=== PATIENT | male | born 1995 | race Caucasian/White ===

== ENCOUNTER 2024-08-14 02:17 | Emergency (ER) | payer SELFPAY ==
[~2024-08-14] VITALS: Ht 182.9 cm; Wt 118.0 kg
[2024-08-14 02:41] VITALS: O2SAT 98
[2024-08-14 04:19] LABS: BASOPHILS % 0.5 % (0.0-2.0); EOSINOPHILS % 3.4 % (0.0-5.0); HEMATOCRIT. 44.6 % (42.0-52.0); HEMOGLOBIN. 14.8 g/dL (14.0-18.0); MEAN CORPUSCULAR HEMOGLOBIN 30.4 pg (28.0-32.0); MEAN CORPUSCULAR HGB CONC 33.3 g/dL (31.0-37.0); MEAN CORPUSCULAR VOLUME 91.4 fL (80.0-94.0); MEAN PLATELET VOLUME 9.1 fl (7.4-10.4); MONOCYTES % 5.6 % (2.0-8.0); NEUTROPHILS % 63.5 % (40.0-76.0); PLATELET 216 x1000/uL (130-400); RED BLOOD CELL COUNT 4.88 mill/uL (4.7-6.1); RED CELL DISTRIBUTION WIDTH 12.9 % (11.6-14.6); WHITE BLOOD COUNT 12.7 x1000/uL (4.5-11.0)
[2024-08-14 04:21] LABS: CHLORIDE 110 mEq/L (98-107); POTASSIUM 3.5 mEq/L (3.5-5.1); SODIUM 146 mEq/L (136-145)
[2024-08-14 04:22] LABS: CARBON DIOXIDE 22 mEq/L (21-32)
[2024-08-14 04:27] LABS: CREATININE 1.1 mg/dL (0.6-1.3); GLUCOSE 135 mg/dL (70-105); UREA NITROGEN BLOOD 9 mg/dL (9-23)
[2024-08-14 04:28] LABS: ETHANOL BLOOD 271 mg/dL (<10)
[2024-08-14 04:29] LABS: ALANINE AMINOTRANSFERASE 114 IU/L (10-49); ALBUMIN 4.7 g/dL (3.2-4.8); ASPARTATE AMINOTRANSFERASE 110 IU/L (<34); BILIRUBIN DIRECT 0.2 mg/dL (<=3.0)
[2024-08-14 04:30] LABS: BILIRUBIN TOTAL 0.6 mg/dL (0.1-1.0); PROTEIN TOTAL 7.2 g/dL (6.0-8.3)
[2024-08-14 04:32] LABS: INR 0.9; PROTHROMBIN TIME 10.6 sec (9.6-11.0)
[2024-08-14] MEDS: SODIUM CHLORIDE 0.9% 1,000 ML IV ONE (05:57)
[2024-08-14 07:00] VITALS: BP 117/64; PULSE 68; RESP 12; TEMP 36.83628; O2SAT 98
== END 2024-08-14 09:33 | disposition left against medical advice (07) ==
LOC: ER 02:17
DX: F10.129 Alcohol abuse with intoxication, unspecified (principal); R41.0 Disorientation, unspecified; Y90.8 Blood alcohol level of 240 mg/100 ml or more
CPT/HCPCS: 80076; 80048; 80320; 85025; 85610; 36415; 71045; 70450; 72125; 71250; 99284; J7030; G0480

== ENCOUNTER 2024-12-03 18:21 | Emergency (ER) | payer MEDICAID, OTHER ==
[~2024-12-03] VITALS: Ht 170.2 cm; Wt 120.0 kg
[2024-12-03 18:23] VITALS: O2SAT 100
[2024-12-03 18:26] VITALS: BP 187/115; PULSE 92; RESP 18; TEMP 36.9; O2SAT 100
[2024-12-03] MEDS: HYDROCODONE/ACETAMINOPHEN 5/325MG TABLET PO ONE (21:18)
[2024-12-03] MEDS: KETOROLAC 30MG/ML VIAL IM ONE (21:18)
[2024-12-03] MEDS ORDERED: CYCL10TA21 MT (21:56)
[2024-12-03] MEDS ORDERED: NAPR-1176 MT (21:56)
== END 2024-12-03 22:03 | disposition home or self-care (01) ==
LOC: ER 18:21
DX: M54.50 Low back pain, unspecified (principal); Z88.0 Allergy status to penicillin; V49.9XXA Car occupant (driver) (passenger) injured in unspecified traffic accident, initial encounter; Y93.89 Activity, other specified; Y92.89 Other specified places as the place of occurrence of the external cause; Y99.8 Other external cause status
CPT/HCPCS: 99283; 96372; J1885